=== PATIENT | female | born 1985 | race Caucasian/White ===

== ENCOUNTER 2019-05-10 18:32 | Inpatient (IN) ==
[2019-05-10] MEDS ORDERED: BUPIVACAINE 0.25% 30 ML VIAL ONE (20:40)
[2019-05-10] MEDS ORDERED: fentaNYL citrate 100 MCG/2 ML VIAL ONE (20:41)
[2019-05-10] MEDS ORDERED: fentaNYL 2MCG/ML ROPIV 1.25MG/ML 100 ML BAG EPI ONE (20:41)
[2019-05-10] MEDS ORDERED: ePHEDrine sulfate 50 MG/ML AMP ONE (20:41)
[2019-05-10] MEDS ORDERED: OXYTOCIN 30 UNITS/500 ML BAG IV PRN (20:42)
[2019-05-10] MEDS: LACTATED RINGER'S 1,000 ML IV PRN ×2 (20:52→23:00)
[2019-05-10 21:00] LABS: Hematocrit (blood only) 37.3 % (37-47); Mean Corpuscular Volume 90.1 fL (80-100); Mean Platelet Volume 10.3 fL (7.4-10.4); Platelet Count 217 K/uL (130-400); RDW Coefficient of Variation 12.9 % (11.5-14.5); RDW Standard Deviation 42.3 fL (36.4-46.3); Red Blood Count 4.14 M/uL (4.2-5.4); White Blood Count 22.02 K/uL (4.8-10.8)
[2019-05-10 21:03] LABS: Mean Corpuscular Hgb Conc 34.9 g/dL (32-36)
[2019-05-10] MEDS ORDERED: NALBUPHINE HCL INJ 10 MG/ML AMP IV PRN (21:31)
[2019-05-10] MEDS ORDERED: NALOXONE HCL 0.4 MG/1 ML VIAL/CARP IV PRN (21:31)
[2019-05-10] MEDS ORDERED: DiphenhydrAMINE HCL 50 MG/ML VIAL IV PRN (21:31)
[2019-05-10] MEDS ORDERED: NALOXONE HCL 1 MG in SODIUM CHLORIDE 0.9% 1000ML 1,000 ML IV PRN (21:31)
[2019-05-10] MEDS ORDERED: ePHEDrine sulfate 50 MG/ML AMP IV PRN (21:31)
[2019-05-10] MEDS ORDERED: fentaNYL 2MCG/ML ROPIV 1.25MG/ML 100 ML BAG EPI PRN (21:31)
[2019-05-10] MEDS ORDERED: ONDANSETRON INJ 2 MG/ML 2 ML VIAL IV PRN (21:31)
--- NOTE | 2019-05-10 23:23 | History & Physical Report ---
Date of Service May 10, 2019 Assessment & Plan (1) Post-term , 40-42 weeks of gestation: admit, iv, labs. anesth has placed epidural (2) PROM with onset of labor more than 24 hours following rupture: we were unaware of her complaints but based on her history will consider her prolonged rom. (3) Variable heart rate decelerations, antepartum: will see if amnioinfusion helps variables. if they persist, she is aware unless dilating rapidly may need to consider c/s. fhts overall reassuring with variability and spont accels but still categ 2. need to recheck cx at least at 2hr raissa. History of Present Illness Chief Complaint: more comfortable with epidural. Primary Care Provider: NO PCP 33yo at 39+wks ega presents with above cc. Patient came in earlier noting regular ctx. She then noted leaking since 3am on 05/09/19 but never called us. She was observed and noted to have nitrazine + fluid, regular ctx and cx change from 3cm to 4cm and was admitted. She wanted and received an epidural for pain management. She is comfortable now. Nursing noting on and off variable decels. pnc c/b 1. abnl masfp 2. elevated bmi 3. hereditary angioedema pnl rh pos, ri, gbs neg obh: g1 gynh: nl paps, no stds pmh: angioedema, obesity psh: tonsillectomy, paz sh: no tob/etoh/drugs fh: no praveen anom or mr Allergies Allergy/AdvReac Type Severity Reaction Status Date / Time Cephalosporins Allergy Mild Verified 02/16/19 11:05 codeine Allergy Mild Verified 02/16/19 11:05 Penicillins Allergy Mild Verified 02/16/19 11:05 Quinolones Allergy Mild Verified 02/16/19 11:05 Home Medications Home Medications Medication Instructions Recorded Confirmed Type vit-iron fum-folic ac 1 tab PO DAILY 05/05/19 05/05/19 History [ Vitamin] Patient History Surgical History History of tonsillectomy History of cholecystectomy History of excision of pilonidal cyst Social History Preferred Language: B[place]udian Communication Ability: Effective Beliefs That Will Affect Care: None marital status: Current Living Situation: Spouse Feels Safe at Home: Yes Smoking Status: Never smoker Hx Alcohol Use: No Hx Substance Use: No Review of Systems some blood show. per hpi Physical Exam Constitutional: WD/WN, vitals as above Gastrointestinal (Abdomen): soft gravid obese ewf 8# Musculoskeletal: no edema Genitourinary: Manual OB Exam: + cervical dilation 5 cm, + cervical effacement 100%, + station -2 and + amniotic fluid clear OB Exam Monitor Tracing: + external FHT monitor used (135 mod variability, variable decels, iupc and fse placed. ) and + external uterine monitor used (q2-3) Results & Data Vital Signs (Past 12 Hours) Vital Signs Temp Pulse Resp BP Pulse Ox 05/10/19 23:11 78 98 05/10/19 23:06 77 96 05/10/19 23:02 76 108/56 L 05/10/19 23:01 68 96 05/10/19 22:56 77 97 05/10/19 22:51 73 97 05/10/19 22:47 76 107/57 L 05/10/19 22:46 75 96 05/10/19 22:41 84 100 05/10/19 22:36 75 100 05/10/19 22:33 73 114/55 L 05/10/19 22:31 72 100 05/10/19 22:30 20 05/10/19 22:26 70 100 05/10/19 22:21 71 100 05/10/19 22:16 77 100 05/10/19 22:15 74 20 127/67 05/10/19 22:11 77 100 05/10/19 22:10 76 20 125/65 05/10/19 22:06 78 100 05/10/19 22:05 91 H 20 124/70 05/10/19 22:03 97 H 119/64 05/10/19 22:01 83 124/68 100 05/10/19 22:00 37.2 C 20 05/10/19 21:59 91 H 121/67 05/10/19 21:57 95 H 128/72 05/10/19 21:56 102 H 100 05/10/19 21:55 20 05/10/19 21:53 80 137/81 05/10/19 21:51 82 100 05/10/19 21:46 88 100 05/10/19 21:41 75 100 05/10/19 21:37 82 139/81 05/10/19 21:36 76 98 05/10/19 21:01 37.2 C 20 05/10/19 18:59 37.2 C 20
--- NOTE | 2019-05-10 23:44 | Obstetrical Progress Note ---
Date of Service May 10, 2019 Assessment & Plan (1) Post-term , 40-42 weeks of gestation: (2) PROM with onset of labor more than 24 hours following rupture: (3) Variable heart rate decelerations, antepartum: have attempted amnioinfusion, ivf bolus and position change. this is spont labor pattern. if variables persist and no imminent delivery will proceed with c/s. couple aware. (4) Hereditary angioedema: Subjective still comfortable Physical Exam Constitutional: WD/WN, vitals as above Genitourinary: OB Exam Monitor Tracing: + scalp electrode used (130 with moderate variability, variable decels. ), + intra-uterine pressure catheter used (ctx strength varies. amnioinfusion bolus in. ) and + category II Results & Data Vital Signs (Past 12 Hours) Vital Signs Temp Pulse Resp BP Pulse Ox 05/10/19 23:36 77 100 05/10/19 23:32 70 103/57 L 05/10/19 23:31 66 95 05/10/19 23:28 70 94 05/10/19 23:26 71 95 05/10/19 23:21 81 95 05/10/19 23:19 80 94 05/10/19 23:17 73 117/66 05/10/19 23:16 72 95 05/10/19 23:11 78 98 05/10/19 23:06 77 96 05/10/19 23:02 76 108/56 L 05/10/19 23:01 68 96 05/10/19 22:56 77 97 05/10/19 22:51 73 97 05/10/19 22:47 76 107/57 L 05/10/19 22:46 75 96 05/10/19 22:41 84 100 05/10/19 22:36 75 100 05/10/19 22:33 73 114/55 L 05/10/19 22:31 72 100 05/10/19 22:30 20 05/10/19 22:26 70 100 05/10/19 22:21 71 100 05/10/19 22:16 77 100 05/10/19 22:15 74 20 127/67 05/10/19 22:11 77 100 05/10/19 22:10 76 20 125/65 05/10/19 22:06 78 100 05/10/19 22:05 91 H 20 124/70 05/10/19 22:03 97 H 119/64 05/10/19 22:01 83 124/68 100 05/10/19 22:00 37.2 C 20 05/10/19 21:59 91 H 121/67 05/10/19 21:57 95 H 128/72 05/10/19 21:56 102 H 100 05/10/19 21:55 20 05/10/19 21:53 80 137/81 05/10/19 21:51 82 100 05/10/19 21:46 88 100 05/10/19 21:41 75 100 05/10/19 21:37 82 139/81 05/10/19 21:36 76 98 05/10/19 21:01 37.2 C 20 05/10/19 18:59 37.2 C 20
[2019-05-11] MEDS ORDERED: CITRIC ACID/SODIUM CITRATE 15 ML UDC ONE (01:10)
[2019-05-11] MEDS ORDERED: AZITHROMYCIN 500 MG in DEXTROSE 5% 250 ML IV ONE (01:18)
[2019-05-11] MEDS ORDERED: LACTATED RINGER'S 1,000 ML IV SCH ×3 (01:30→02:30)
[2019-05-11] MEDS ORDERED: CLINDAMYCIN 900 MG in DEXTROSE 5% 50 ML IV ONE (01:30)
[2019-05-11] MEDS ORDERED: GENTAMICIN SULFATE 120 MG in DEXTROSE 5% 100 ML IV ONE (01:30)
[2019-05-11] MEDS ORDERED: CITRIC ACID/SODIUM CITRATE 15 ML UDC PO ONE (01:30)
[2019-05-11] MEDS ORDERED: PHENYLEPHRINE HCL 10 MG/ML VIAL ONE (01:42)
[2019-05-11] MEDS ORDERED: LIDOCAINE/EPINEPHRINE 2% 1:200,000 20 ML SDV ONE (01:42)
[2019-05-11] MEDS ORDERED: ONDANSETRON INJ 2 MG/ML 2 ML VIAL ONE (01:42)
[2019-05-11] MEDS ORDERED: MoRPHine SULFATE PF 1 MG/ML 10 ML AMP/VIAL ONE (01:43)
[2019-05-11] MEDS ORDERED: OXYTOCIN 10 UNITS/ML VIAL ONE ×2 (01:43→02:14)
[2019-05-11] MEDS ORDERED: ONDANSETRON INJ 2 MG/ML 2 ML VIAL IV PRN ×3 (01:57→20:04)
[2019-05-11] MEDS ORDERED: TERBUTALINE SULFATE 1 MG/ML VIAL ONE (02:00)
[2019-05-11] MEDS ORDERED: PROMETHAZINE HCL 25 MG in SODIUM CHLORIDE 0.9% 50 ML IV PRN ×2 (02:04→20:04)
[2019-05-11] MEDS ORDERED: MoRPHine SULFATE PF 1 MG/ML 10 ML AMP/VIAL EPI ONE (02:04)
[2019-05-11] MEDS ORDERED: DiphenhydrAMINE HCL 50 MG/ML VIAL IV PRN ×2 (02:04→20:04)
[2019-05-11] MEDS ORDERED: NALOXONE HCL 0.4 MG/1 ML VIAL/CARP IV PRN (02:04)
[2019-05-11] MEDS ORDERED: MEPERIDINE HCL 25 MG/ML CARP IV PRN (02:04)
[2019-05-11] MEDS ORDERED: NALOXONE HCL 1 MG in SODIUM CHLORIDE 0.9% 1000ML 1,000 ML IV PRN (02:04)
[2019-05-11] MEDS ORDERED: ePHEDrine sulfate 50 MG/ML AMP IV PRN (02:04)
[2019-05-11] MEDS ORDERED: NALBUPHINE HCL INJ 10 MG/ML AMP IV PRN (02:04)
[2019-05-11] MEDS ORDERED: NALOXONE HCL 0.08 MG in SYRINGE 1.8 ML IV PRN (02:04)
[2019-05-11] MEDS ORDERED: LACTATED RINGER'S 500 ML IV PRN (02:04)
[2019-05-11] MEDS ORDERED: NO NARCOTICS OR SEDATIVES SCH (02:15)
[2019-05-11] MEDS ORDERED: DC INTRASPINAL MORPHINE SCH (02:15)
[2019-05-11] MEDS ORDERED: SODIUM CHLORIDE 0.9% 1000ML 1,000 ML IV SCH (02:15)
[2019-05-11 02:16] LABS: Base Excess Cord Arterial Bld -6.5 mEq/L (-9-1.8); CO2 Cord Arterial Blood 52 mmHg (39.1-73.5); HCO3 Cord Arterial Blood 22 mmol/L (19.7-28.5); Oxygen Sat Cord Arterial Blood < 60.0 % (<60); pH Cord Arterial Blood 7.24 (7.1-7.38)
[2019-05-11 02:17] LABS: Base Excess Cord Venous Blood -8.2 mEq/L (-7.7-1.9); Cord Venous Blood HCO3 19 mmol/L (18.4-26.8); Cord Venous Blood PCO2 45 mmHg (30.4-57.2); Cord Venous Blood PO2 18 mmHg (14.1-43.3); Cord Venous Blood pH 7.24 (7.20-7.44); O2 Saturation Cord Venous Bld < 60.0 % (<68)
--- NOTE | 2019-05-11 02:20 | Post Operative Brief Note ---
Immediate Post Op Note v1 Date of Surgery May 11, 2019 Pre & Post Diagnosis Operation Date: 05/11/19 01:15 <No data on this case meets the specified criteria> 1. 40+wk iup 2. PROM 3. intolerance to labor Procedure Operation Date: 05/11/19 01:15 <No data on this case meets the specified criteria> Primary Low Transverse Section Surgeon Calista Siddiqui MD, FACOG Billing Representative RN Estimated Blood Loss 700 Findings Consistent with Post-Op Diagnosis (viable female infant.short cord. normal uterus, tubes and ovaries bilaterally. ) Fluids 1400 Specimens placenta to pathology Drains Lopez Catheter Anesthesia Type Labor Epidural Complications none Disposition Accompanied Patient To Recovery: No Disposition: L&D
[2019-05-11] MEDS ORDERED: DIPHTHERIA/TETANUS/PERTUSSIS 0.5 ML SYR/VIAL IM ONE (02:22)
[2019-05-11] MEDS ORDERED: SUPERCREAM 0.870% 15 GM JAR EXT PRN (02:22)
[2019-05-11] MEDS ORDERED: BENZOCAINE 20% AER SPR 82.5 GM CAN EXT PRN (02:22)
[2019-05-11] MEDS ORDERED: HYDROCORTISONE ACETATE 25 MG SUPP PR PRN (02:22)
--- NOTE | 2019-05-11 03:15 | Operative Report ---
DATE OF OPERATION: 05/10/2019 PREOPERATIVE DIAGNOSES: 1. A 40+ week intrauterine . 2. Premature rupture of membranes. 3. Spontaneous onset of labor. 4. intolerance of labor. POSTOPERATIVE DIAGNOSES: 1. A 40+ week intrauterine . 2. Premature rupture of membranes. 3. Spontaneous onset of labor. 4. intolerance of labor. PROCEDURE: Primary low transverse section. SURGEON: Calista Siddiqui MD. PACKAGING LINE ATTENDANT: RN. INTRAVENOUS FLUIDS: 1400 mL ESTIMATED BLOOD LOSS: 700 mL ANESTHESIA: Epidural with Duramorph. FINDINGS: Viable female , Apgars 8 and 9, weight 6 pounds. Normal uterus, tubes and ovaries bilaterally. Evidence of short cord. INDICATIONS: A 33-year-old 1, para 0 who presented with regular contractions and early labor. Of note, on her arrival, she reported leaking fluid from the day prior and was ruptured on her arrival and therefore was considered prolonged rupture. She proceeded into spontaneous labor; however, the fetus was intolerant with evidence of variable decels that were recurrent. There was no likelihood of imminent delivery. A IUPC had been placed and an amnioinfusion was attempted; however, this did not correct the problem and ultimately it was recommended that she proceed with section as she was remote from delivery with deep variable decels of the fetus. DESCRIPTION OF PROCEDURE: The patient was taken to the operating room and identified. She was laid in the supine position with a leftward tilt and her epidural was bolused. She was prepped and draped in the usual sterile fashion. A Lopez catheter had been placed under sterile conditions. The knife was then used to create a Pfannenstiel skin incision that was carried down to the underlying layer of fascia. The fascia was nicked in the midline and the opening was extended laterally using Izaguirre scissors. Gonzalo clamps were placed on the superior and inferior aspects of the fascial incision, tenting it upwards and the underlying rectus muscles were dissected off the overlying fascia both sharply and bluntly using Izaguirre scissors. The rectus muscles were bluntly in the midline. The peritoneal cavity was bluntly entered into. This opening was stretched. Bladder blade was placed. The vesicouterine peritoneum was grasped with a Radha clamp and elevated and using the Metzenbaum scissors, the bladder flap was created sharply and then digitally. The bladder blade was replaced. Knife was used to create a hysterotomy that was then stretched. The injection operator's hand was placed through the hysterotomy and the bladder blade was removed. There was evidence of thin meconium. The head was then elevated, flexed and with fundal pressure delivered. The shoulders and body were rapidly delivered thereafter and the mouth and nose were bulb suctioned. The cord was doubly clamped and cut and the was handed off to the awaiting pediatricians. Cord blood and cord gases were obtained. The placenta was manually expressed. The uterus was exteriorized and cleared of all clots and debris. The hysterotomy was closed in a running interlocking fashion using 0 Vicryl followed by a second imbricating layer of 0 Vicryl. There was bleeding at the left hysterotomy site that was stitched with 2 [id number] sutures of 2-0 Vicryl for excellent hemostasis. The gutters were cleared of all clots and debris. The uterus was returned to the abdomen. The pelvis was irrigated and the hysterotomy was reinspected. It was notably hemostatic. The fascia was closed in a running fashion using 0 Vicryl. The subcutaneous fat was copiously irrigated and the fat was reapproximated using 2-0 chromic. The skin was then closed in subcuticular fashion using 4-0 Vicryl. All sponge, lap and needle counts were correct x2. The patient was returned to the recovery room in stable condition. I attest to the content of the Intraoperative Record and any orders documented therein. Any exceptions are noted below. HERON
--- NOTE | 2019-05-11 03:42 | Anesthesiology Progress Note ---
Date of Service May 11, 2019 Anesthesia Post Procedure Vital Signs Vital Signs: Temp Pulse Resp BP Pulse Ox 05/11/19 03:40 106 H 115/64 100 05/11/19 03:35 103 H 100 05/11/19 03:30 108 H 20 105/59 L 100 05/11/19 03:25 109 H 99 05/11/19 03:20 107 H 20 104/56 L 98 05/11/19 03:15 111 H 97 05/11/19 03:10 103 H 20 132/61 96 05/11/19 03:05 112 H 97 05/11/19 03:00 109 H 20 96 05/11/19 02:58 108 H 129/57 L 05/11/19 02:56 113 H 94 05/11/19 02:55 112 H 95 05/11/19 02:50 104 H 20 95 05/11/19 02:49 105 H 94 05/11/19 02:48 102 H 134/61 05/11/19 02:45 106 H 94 05/11/19 02:42 107 H 94 05/11/19 02:40 110 H 20 96 05/11/19 02:38 108 H 137/59 L 05/11/19 02:36 107 H 94 05/11/19 02:34 105 H 95 05/11/19 02:30 36.8 C 20 05/11/19 02:29 103 H 92 05/11/19 02:27 106 H 137/63 05/11/19 01:21 110 H 99 05/11/19 01:16 110 H 98 05/11/19 01:11 103 H 100 05/11/19 01:06 105 H 100 05/11/19 01:02 100 H 127/74 05/11/19 01:01 106 H 100 05/11/19 01:00 20 05/11/19 00:56 82 100 05/11/19 00:51 68 100 05/11/19 00:49 76 116/73 05/11/19 00:46 72 100 05/11/19 00:41 70 100 05/11/19 00:36 67 99 05/11/19 00:32 73 127/72 05/11/19 00:31 71 100 05/11/19 00:30 37.2 C 20 05/11/19 00:26 69 100 05/11/19 00:21 64 100 05/11/19 00:17 66 129/79 05/11/19 00:16 64 100 05/11/19 00:11 68 100 05/11/19 00:06 68 99 05/11/19 00:02 73 118/75 05/11/19 00:01 70 99 05/11/19 00:00 20 05/10/19 23:56 71 99 05/10/19 23:51 63 100 05/10/19 23:48 69 115/67 05/10/19 23:46 69 100 05/10/19 23:41 71 100 05/10/19 23:36 37.2 C 77 100 05/10/19 23:32 70 103/57 L 05/10/19 23:31 66 95 05/10/19 23:28 70 94 05/10/19 23:26 71 95 05/10/19 23:21 81 95 05/10/19 23:19 80 94 05/10/19 23:17 73 117/66 05/10/19 23:16 72 95 05/10/19 23:11 78 98 05/10/19 23:06 77 96 05/10/19 23:02 76 108/56 L 05/10/19 23:01 68 96 05/10/19 22:56 77 97 05/10/19 22:51 73 97 05/10/19 22:47 76 107/57 L 05/10/19 22:46 75 96 05/10/19 22:41 84 100 05/10/19 22:36 75 100 05/10/19 22:33 73 114/55 L 05/10/19 22:31 72 100 05/10/19 22:30 20 05/10/19 22:26 70 100 05/10/19 22:21 71 100 05/10/19 22:16 77 100 05/10/19 22:15 74 20 127/67 05/10/19 22:11 77 100 05/10/19 22:10 76 20 125/65 05/10/19 22:06 78 100 05/10/19 22:05 91 H 20 124/70 05/10/19 22:03 97 H 119/64 05/10/19 22:01 83 124/68 100 05/10/19 22:00 37.2 C 20 05/10/19 21:59 91 H 121/67 05/10/19 21:57 95 H 128/72 05/10/19 21:56 102 H 100 05/10/19 21:55 20 05/10/19 21:53 80 137/81 05/10/19 21:51 82 100 05/10/19 21:46 88 100 05/10/19 21:41 75 100 05/10/19 21:37 82 139/81 05/10/19 21:36 76 98 05/10/19 21:01 37.2 C 20 05/10/19 18:59 37.2 C 20 Pain Intensity Bilateral Abdomen: Pain Intensity: 2 Transfer of Care Handoff Completed per policy Notes Mental Status: alert / awake / arousable Patient Amnestic to Procedure: Yes Nausea / Vomiting: adequately controlled Pain: adequately controlled Airway Patency, RR, SpO2: stable & adequate BP & HR: stable & adequate Hydration State: stable & adequate Neuraxial Anesthesia: was administered and sensory block is resolving Anesthetic Complications: no major complications apparent and Pt Satisfied with anesthetic care
[2019-05-11] MEDS: KETOROLAC 30 MG/ML VIAL IV PRN ×3 (04:21→16:22)
[2019-05-11] MEDS: OXYTOCIN 20 UNITS in LACTATED RINGER'S 1,000 ML IV SCH ×2 (04:39→12:03)
[2019-05-11] MEDS: DOCUSATE SODIUM 100 MG CAP PO SCH ×2 (10:04→20:56)
[2019-05-11] MEDS: SIMETHICONE 80 MG CHEW PO SCH ×4 (10:04→20:56)
[2019-05-11] MEDS ORDERED: KETOROLAC 30 MG/ML VIAL IV PRN (20:04)
[2019-05-11] MEDS ORDERED: ZOLPIDEM TARTRATE 5 MG TAB PO PRN (20:04)
[2019-05-11] MEDS: OXYCODONE/ACETAMINOPHEN 5mg/325mg TAB PO PRN (20:55)
[2019-05-12] MEDS: OXYCODONE/ACETAMINOPHEN 5mg/325mg TAB PO PRN ×5 (02:12→20:33)
[2019-05-12] MEDS: IBUPROFEN 600 MG TAB PO PRN ×5 (02:12→20:32)
--- NOTE | 2019-05-12 05:12 | Obstetrical Progress Note ---
Date of Service <Shravan Stokes MD - Last Filed: 05/12/19 07:19> May 12, 2019 Assessment & Plan <Shravan Stokes MD - Last Filed: 05/12/19 07:19> (1) S/P primary low transverse : [33 y/o s/p primary low transverse C/S @ 40+6 with PROM and intolerance Hx of hereditary Angioedema] -POD#1 - GBS negative, Blood Type B+ - Feels well today. Eating well, voiding well, ambulating well. - Pain well controlled. - Routine postoperative care - After discharge will have [address] Siddiqui. Present on Admission?: No Day #:: 1 Subjective <Shravan Stokes MD - Last Filed: 05/12/19 07:19> Ambulation: ambulating normally Voiding: no voiding problems Passing Gas:: Yes Diet Tolerance:: clear liquids Lochia:: Small Feeding Type:: breast feeding Current Pain Level(1-10): 3 Physical Exam <Shravan Stokes MD - Last Filed: 05/12/19 07:19> OB PE General: Alert, oriented. No acute distress. Cardiac: Regular rate and rhythm, no murmurs/rubs/gallops. Respiratory: Clear to auscultation anterior and posteriorly, no wheezes/rales/rhonchi. No increased work of breathing. Symmetrical chest rise. No respiratory distress. Abdomen: Soft, nontender, nondistended. Bowel sounds present. Uterus: Uterine fundus firm, palpable at the umbilicus. Lower Extremities: No lower extremity edema or swelling. No deep calf pain. Lory's negative bilaterally. OB ROS Denies fever, chills, sweats Denies shortness of breath, difficulty breathing, chest pain, palpitations, chest pressure. Denies breast pain. Denies dysuria. Denies headache. Results & Data <Shravan Stokes MD - Last Filed: 05/12/19 07:19> Vital Signs (Past 12 Hours) Vital Signs Temp Pulse Resp BP Pulse Ox 05/12/19 04:05 36.9 C 77 18 95/62 L 05/12/19 00:35 37 C 81 18 107/71 05/12/19 00:00 37.1 C 95 H 17 112/72 96 05/11/19 20:40 17 97 05/11/19 19:40 37.1 C 80 18 96/65 L 98 05/11/19 18:40 16 96 05/11/19 17:40 16 96 <Mai Burgess MD - Last Filed: 05/12/19 07:03> Co-Signing Physician Notes I have reviewed the resident's note and examined the patient myself, and agree with the note above.
[2019-05-12 06:49] LABS: Basophils # (auto) 0.03 K/uL (0-0.2); Basophils % (auto) 0.2 %; Eosinophils # (auto) 0.11 K/uL (0-0.5); Eosinophils % (auto) 0.7 %; Hematocrit (blood only) 32.3 % (37-47); Hemoglobin 11.1 g/dL (12.0-16.0); Immature Granulocytes # (auto) 0.06 K/uL (0.00-0.02); Immature Granulocytes % (auto) 0.4 %; Lymphocytes # (auto) 1.72 K/uL (1.2-3.4); Lymphocytes % (auto) 10.9 %; Mean Corpuscular Hgb Conc 34.4 g/dL (32-36); Mean Corpuscular Volume 91.8 fL (80-100); Mean Platelet Volume 10.1 fL (7.4-10.4); Monocytes # (auto) 1.16 K/uL (0.11-0.59); Monocytes % (auto) 7.4 %; Neutrophils # (auto) 12.68 K/uL (1.4-6.5); Neutrophils % (auto) 80.4 %; Platelet Count 179 K/uL (130-400); RDW Coefficient of Variation 13.5 % (11.5-14.5); RDW Standard Deviation 44.7 fL (36.4-46.3); Red Blood Count 3.52 M/uL (4.2-5.4); White Blood Count 15.76 K/uL (4.8-10.8)
--- NOTE | 2019-05-12 08:23 | Anesthesiology Progress Note ---
Date of Service May 12, 2019 Anesthesia Post Procedure Vital Signs Vital Signs: Temp Pulse Pulse Resp BP BP Pulse Ox 05/12/19 04:05 36.9 C 77 18 95/62 L 05/12/19 00:35 37 C 81 18 107/71 05/12/19 00:00 37.1 C 95 H 17 112/72 96 05/11/19 20:40 17 97 05/11/19 19:40 37.1 C 80 18 96/65 L 98 05/11/19 18:40 16 96 05/11/19 17:40 16 96 05/11/19 16:40 20 96 05/11/19 15:40 37.3 C 102 H 102 H 18 102/66 102/66 96 05/11/19 14:00 20 97 05/11/19 13:00 20 99 05/11/19 12:03 20 98 05/11/19 11:15 37 C 95 H 20 90/58 L 95 05/11/19 11:00 20 98 05/11/19 10:00 18 96 05/11/19 09:00 20 97 Pulse Ox 05/12/19 04:05 05/12/19 00:35 05/12/19 00:00 05/11/19 20:40 05/11/19 19:40 05/11/19 18:40 05/11/19 17:40 05/11/19 16:40 05/11/19 15:40 96 05/11/19 14:00 05/11/19 13:00 05/11/19 12:03 05/11/19 11:15 95 05/11/19 11:00 05/11/19 10:00 05/11/19 09:00 Pain Intensity Bilateral Abdomen: Pain Intensity: 3 Transfer of Care Handoff Completed per policy Notes Mental Status: alert / awake / arousable Patient Amnestic to Procedure: Yes Nausea / Vomiting: adequately controlled Pain: adequately controlled Airway Patency, RR, SpO2: stable & adequate BP & HR: stable & adequate Hydration State: stable & adequate Neuraxial Anesthesia: was administered and sensory block resolved Anesthetic Complications: no major complications apparent and Pt Satisfied with anesthetic care
[2019-05-12] MEDS: SIMETHICONE 80 MG CHEW PO SCH ×3 (09:18→20:32)
[2019-05-12] MEDS: DOCUSATE SODIUM 100 MG CAP PO SCH ×2 (09:18→20:32)
[2019-05-13] MEDS: IBUPROFEN 600 MG TAB PO PRN ×5 (00:14→20:16)
[2019-05-13] MEDS: OXYCODONE/ACETAMINOPHEN 5mg/325mg TAB PO PRN ×5 (00:14→20:16)
--- NOTE | 2019-05-13 05:26 | Obstetrical Progress Note ---
Date of Service <Shravan Stokes MD - Last Filed: 05/13/19 08:08> May 13, 2019 Assessment & Plan <Shravan Stokes MD - Last Filed: 05/13/19 08:08> (1) S/P primary low transverse : [33 y/o s/p primary low transverse C/S @ 40+6 with PROM and intolerance Hx. of hereditary Angioedema] POD#2 - GBS negative, Blood Type B+ - Feels well today. Eating well, voiding well, ambulating well. - Pain well controlled. - Routine postoperative care - After discharge will have [address] Siddiqui. Dyspnea on deep inspiration - potentially post operative atelectasis (encourage ambulation) - no pleuritic pain, normocardic, Wells criteria 1.5 (low clinical probability) - Hx. of Hereditary Angioedema Diagnosed 02/21 - Firazyr prescription for acute attacks - no concerning signs or symptoms of angioedema PLAN - CXR - Medicine consult for further evaluation Subjective <Shravan Stokes MD - Last Filed: 05/13/19 08:08> Ambulation: ambulating normally Voiding: no voiding problems Passing Gas:: Yes Diet Tolerance:: regular diet Feeding Type:: breast feeding Current Pain Level(1-10): 3 Physical Exam <Shravan Stokes MD - Last Filed: 05/13/19 08:08> OB PE General: Alert, oriented. No acute distress. Cardiac: Regular rate and rhythm, no murmurs/rubs/gallops. Respiratory: Clear to auscultation anterior and posteriorly, no wheezes/rales/rhonchi. No increased work of breathing. Symmetrical chest rise. No respiratory distress. Abdomen: Soft, nontender, nondistended. Bowel sounds present. Incision c/d/i Uterus: Uterine fundus firm, palpable 1 cm below umbilicus. Lower Extremities: No lower extremity edema or swelling. No deep calf pain. Lory's negative bilaterally. OB ROS Admits Shortness of breath without pain Denies fever, chills, sweats Denies chest pain, palpitations, chest pressure. Denies breast pain. Denies dysuria. Denies headache. Results & Data <Shravan Stokes MD - Last Filed: 05/13/19 08:08> Vital Signs (Past 12 Hours) Vital Signs Temp Pulse Pulse Resp BP BP Pulse Ox 05/12/19 23:05 37 C 81 18 115/68 05/12/19 20:30 37 C 89 18 116/71 97 <Marylou Wright MD, FACOG - Last Filed: 05/13/19 08:09> Co-Signing Physician Notes Resident Physician Supervision Note: I was present with [Name of resident] during the history and exam. I discussed the case with the resident and agree with the findings and plan as documented in the note. Any exceptions or clarifications are listed here: [None] Documented By: Marylou Wright MD, FACOG
[2019-05-13] MEDS: DOCUSATE SODIUM 100 MG CAP PO SCH ×2 (07:38→20:16)
[2019-05-13] MEDS: SIMETHICONE 80 MG CHEW PO SCH ×4 (07:38→20:16)
--- NOTE | 2019-05-13 08:51 | Hospitalist Consultation ---
Date of Consultation May 13, 2019 Assessment & Plan (1) Shortness of breath: - Onset x 1 day, improving - Possible that this is secondary to acute blood loss s/p as Hgb has dropped from 13 to 10 g. Also possible that this is a form of atelectasis with diminished breath sounds at bases bilaterally on exam. Pt notes improvement in SOB since yesterday. Pt encouraged to use incentive spirometer - discussed with nursing as well. - Consider dx of pulmonary embolism with hypercoagulable state vs. amniotic fluid embolism - however pt with stable VS, minimal shortness of breath at this time, improved from yesterday, therefore this is unlikely. - CXR 2 view ordered, await results. - Consider CTA and venous dopplers if worsening sx - Recheck cbc with am labs - Encourage ambulation (2) Hereditary angioedema: - Last flare was at 3 mo , prior to that was 8 years ago - Has not required medication for flares but has a Rx for Firazyr as outpatient - never has needed to use - Unlike the pts current presentation - she has gotten minimal edema in the hands and face on prior episodes. - Monitor the R wrist for further edema (3) S/P primary low transverse : - Per certified court/medical interpreter - Continue analgesia with oxycodone/acetaminophen prn (4) DVT prophylaxis: - encourage ambulation, no chemical form of dvt ppx ordered. Thank you for involving medicine in the care of Mrs. Meyer, please do not hesitate to call with questions or concerns. We will follow along. History of Present Illness Reason for Consultation: Shortness of breath Requesting Physician: Dr. Wright Attending Physician: Calista Siddiqui MD, FACOG History of Present Illness This is a 33 yo F with PMHx of hereditary angioedema, hx of tonsillectomy, cholecystectomy, who is s/p 2 days ago and noticed worsening shortness of breath yesterday, on 05/12/19. It seems to be at it's worst when she goes from a sitting to standing position, and then is fine while ambulating. Her breathing is slightly labored while talking, but does not have difficulty holding a conversation, and does not appear winded. Pt notes breathing is overall much improved today. She denies cough, rhinorrhea, sore throat, but complains of slightly dry throat. Denies lightheadedness, dizziness, chest pain or palpitations. In regards to hereditary angioedema, she had her most recent flare while she was about 3 month , but that this consisted on swelling in her hands and face. Prior to that her last flare was 8 years ago and involved the face and hands, she denies hx of respiratory involvement. Home meds include a Rx for Firazyr, but has never required using this. Currently pt notes her right wrist is slightly swollen, but that this minimal compared to prior flares, and does not believe this is actually an angioedema flare beginning. Pt is tolerating a diet well. Urinating and passing gas, but no BM yet. She reports the baby is doing well between nursing, pumping and using formula supplementation because of low glucose. Her is present at bedside during exam. Allergies Allergy/AdvReac Type Severity Reaction Status Date / Time Cephalosporins Allergy Mild Verified 02/16/19 11:05 codeine Allergy Mild Verified 02/16/19 11:05 Penicillins Allergy Mild Verified 02/16/19 11:05 Quinolones Allergy Mild Verified 02/16/19 11:05 Home Medications Home Medications Medication Instructions Recorded Confirmed Type vit-iron fum-folic ac 1 tab PO DAILY 05/05/19 05/11/19 History [ Vitamin] Patient History Medical History 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, only involves hands and feet not airway, resolved on its own Surgical History History of tonsillectomy History of cholecystectomy History of excision of pilonidal cyst Social History Preferred Language: Senegalese Communication Ability: Effective Beliefs That Will Affect Care: None marital status: Current Living Situation: Spouse Feels Safe at Home: Yes Smoking Status: Never smoker Hx Alcohol Use: No Hx Substance Use: No Review of Systems Review of Systems: Constitutional: No fever, sweats or chills Eyes: No diplopia, no worsening or blurred vision ENT: normal hearing, no trouble swallowing Respiratory: As per HPI. No cough, sputum, dyspnea at rest or on exertion Cardiovascular: No chest pain, tightness or palpitations Abdomen: + Dull abd pain secondary to , controlling with medication. No nausea, vomiting, diarrhea. Last BM 2d ago. Musculoskeletal: No joint pain, calf pain. R wrist with minimal swelling. Neurologic: No weakness, numbness/tingling, or balance problems Psychiatric: No anxiety or depression Skin: No rash or itch Physical Exam Physical Exam: General: awake, alert, no apparent distress Head: Normocephalic, atraumatic ENT: PERRL, EOMI, no pharyngeal exudate, mucous membranes moist Chest: Clear to auscultation, on room air, +diminished breath sounds at bases bilaterally, no wheezes, rales or rhonchi. No work of breathing or use of accessory muscles. Cardiac: Regular rate and rhythm, no murmur, no JVD, normal peripheral pulses, good capillary refill Abdominal: NABS x 4 quadrants, soft, nondistended, + minimally tender palpation, no rebound, guarding or tenderness Extremities: Normal inspection, no peripheral edema or erythema, calfs nontender to palpation. + Right wrist with minimal edema. Psych: Normal mood and affect Neuro: AAO x 3, strength intact bilaterally and related 5/5, no motor deficits, speech is clear, no peripheral sensory deficits Results & Data Vital Signs (Past 12 Hours) Vital Signs Temp Pulse Resp BP 05/12/19 23:05 37 C 81 18 115/68 PG Care Time/CCT Total # of Minutes Spent Total Time Spent with Patient: Total time spent is greater than 50% in coordinat ion of care (as documented) at patient's floor/unit and/or counseling patient:
--- NOTE | 2019-05-13 09:46 | XRay Report ---
TWO VIEW CHEST CLINICAL HISTORY: Dyspnea. Recent delivery. FINDINGS: PA and lateral chest radiographs are obtained. No prior studies are available for compariso n at the time of dictation. The cardiomediastinal silhouette is unremarkable. There are low lung vo lumes. Trace pleural effusions are identified with bibasilar atelectasis. There is no pneumothorax. T he bony thorax appears intact. Cholecystectomy clips are noted in the right upper quadrant. IMPRESSION: 1. Low lung volumes. 2. Trace pleural effusions with bibasilar atelectasis. Electronically signed by: John Kendall M.D. 05/13/2019 9:45 AM
[2019-05-14] MEDS: IBUPROFEN 600 MG TAB PO PRN ×2 (06:27→11:53)
[2019-05-14] MEDS: OXYCODONE/ACETAMINOPHEN 5mg/325mg TAB PO PRN ×2 (06:27→11:54)
[2019-05-14 07:00] LABS: Hemoglobin 9.8 g/dL (12.0-16.0); Mean Corpuscular Hgb Conc 33.8 g/dL (32-36); Mean Corpuscular Volume 93.9 fL (80-100); Mean Platelet Volume 9.5 fL (7.4-10.4); Platelet Count 212 K/uL (130-400); RDW Coefficient of Variation 13.1 % (11.5-14.5); RDW Standard Deviation 45.5 fL (36.4-46.3); Red Blood Count 3.09 M/uL (4.2-5.4); White Blood Count 8.39 K/uL (4.8-10.8)
--- NOTE | 2019-05-14 08:10 | Obstetrical Progress Note ---
Date of Service May 14, 2019 Assessment & Plan (1) S/P primary low transverse : POD#3 doing well. Discharge to home. Reviewed instructions. Rx percocet #20 tabs. [place] checked. RTO 6w . Subjective Ambulation: ambulating normally Voiding: no voiding problems Diet Tolerance:: regular diet Lochia:: Moderate Feeling well - feels like respiratory complaints have resolved. Would like to go home. Review of Systems All systems reviewed & are unremarkable except as noted in HPI & below Physical Exam Constitutional WD/WN, vitals as above no acute distress Respiratory normal respiratory effort Cardiovascular Rate/Rhythm: regular rate and regular rhythm Gastrointestinal (Abdomen) Inspection/Auscultation: abdomen normal to inspection; abdomen not distended Percussion/Palpation: abdomen soft Genitourinary OB Exam Abdomen: + fundal height Fundus: + firm; not tender Incision healing well. Results & Data Vital Signs (Past 12 Hours) Vital Signs Temp Pulse Resp BP 05/13/19 23:20 36.7 C 75 18 116/71
[2019-05-14] MEDS: DOCUSATE SODIUM 100 MG CAP PO SCH (08:14)
[2019-05-14] MEDS: SIMETHICONE 80 MG CHEW PO SCH (08:14)
--- NOTE | 2019-05-16 10:53 | Discharge Summary ---
Date of Service Day of admission: May 10, 2019 Day of discharge: May 14, 2019 Admission HPI Per Admitting Provider ADMISSION DIAGNOSES: 1. A 40+ week intrauterine . 2. Premature rupture of membranes. 3. Spontaneous onset of labor. 4. intolerance of labor. DISCHARGE DIAGNOSES: same Discharge Data Consultations 05/10/19 20:42 Consult Anesthesiology Stat 05/13/19 08:04 Consult Hospitalist Routine Procedures Performed Operation Date: 05/11/19 01:15 Actual Procedures p Primary Low Transverse Section Hospital Course (1) Post-term , 40-42 weeks of gestation: (2) PROM with onset of labor more than 24 hours following rupture: (3) Variable heart rate decelerations, antepartum: (4) intolerance to labor, delivered, current hospitalization: Patient was admitted in early labor and confirmation of PROM. She was progressing in spontaneous labor by repetitive variable decelerations remote from delivery noted. Multiple attempts to resolve were not successful, including fluid bolus, position change and amnioinfusion and counseled about recommendation for section. Above stated procedure performed without incident. Post operative hemoglobin 9.8 mg/dL. Patient did have episode of shortness of breath and was evaluated by hospitalist service however ultimately it spontaneously resolved. She was sent home on postoperative day #3 with discharge instructions, prescription for pain medications and recommendation for followup in 6 weeks .
== END 2019-05-14 14:00 | disposition home or self-care (01) | DRG 787 ==
LOC: OPB 18:32 → 4S1 18:33 → 4S2 05-11 05:05

== ENCOUNTER 2025-06-05 13:46 | Observation (INO) ==
[2025-06-05] MEDS: OPTIRAY 320 125ml IV ONE (13:59)
--- NOTE | 2025-06-05 14:13 | CT Scan Report ---
CT SCAN OF THE BRAIN WITHOUT IV CONTRAST CLINICAL HISTORY: Neuro deficit. Acute stroke suspected. COMPARISON STUDY: None. TECHNIQUE: Unenhanced axial CT scan of the brain was performed from the vertex to the skull base. A dose lowering technique was utilized adhering to the principles of ALARA. FINDINGS: Brain parenchyma: No acute intracranial hemorrhage, midline shift or mass effect is present. Nuñ[place]-wh[place] te matter differentiation is preserved. There are no extra-axial fluid collections. There are no find ings to suggest acute dural sinus thrombosis or acute territorial infarct. Ventricles, sulci, cisterns: There is no hydrocephalus. The basal cisterns are patent. Calvarium: Unremarkable. Sinuses and mastoids: The visualized paranasal sinuses are clear. The mastoid air cells are well pneu matized. Orbits: The bony orbits are grossly intact. IMPRESSION: No acute intracranial findings. ACT 112: Negative or not required by law. Electronically signed by: Lito Elliott M.D. 06/05/2025 2:12 PM
--- NOTE | 2025-06-05 14:20 | Emergency Department Note ---
Impression & Plan Facial numbness, Brain fog, Multiple sclerosis ED Provider Note NAME: DARNELL ANNE AGE: 39 SEX: F : 1985 ARRIVES VIA: Walk-In INFORMANT: Patient ED PROVIDER(S): Elie Delgado MD CHIEF COMPLAINT: Facial numbness, confusion/brain fog PLAN: Disposition: Admit MEDICAL DECISION MAKING: The patient is a pleasant 39 woman with a past medical history of multiple sclerosis on Ocrevus who presents emerged department via walk-in for evaluation of symptoms of facial numbness bilaterally and feeling "off" where she feels difficulty processing/confusion. Patient reports her symptoms began around 8 AM this morning. 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 She went her first door on [facility] and started to feel symptoms but thought she could continue with her agenda and drove to her store in [place]. She told staff there that she did not feel well but did not specify to them exactly what. She feels as if she modeled through her tasks and drove home. She attempted call her MS specialist who is in [place] but has yet to hear back. Her encouraged her to come to the hospital. She drove to our facility from [place]. In retrospect she admits she should not have done that. Stroke alert was activated from triage though the patient is not a TNK candidate given the onset of her symptoms was at 8 AM. On evaluation the patient no acute distress, afebrile blood pressure 150/102 , HR 100s and otherwise stable vital signs. She appears clinically dry. She exhibits no objective focal neurologic deficits. EKG demonstrates sinus tachycardia, 118 bpm, no ectopy, ST abnormality in V3 which may reflect artifact versus possible Brugada though less likely, no overt ST elevation. QTc 431, QRS 84. Repeat EKG with resolution of ST abnormality. WBC, H/H and platelets within normal limits. Chemistry without metabolic acidosis. Potassium 3.4 and magnesium 1.9 with oral and IV repletion provided, respectively. LFTs unremarkable. High sensitivity troponin 2.3, within normal limits. hCG negative. CT of the head and CTA of the head and neck were performed and were negative for ICH, ischemia or severe narrowing or occlusion of large vessels. Upon reevaluation the patient denied any significant change in her symptoms though heart rate was improved. Given persistence of her symptoms patient does agree plan for admission for further management. Case was discussed with CLAUS Hall hospitalist, who will evaluate the patient for admission. Further management per admitting team. Triage Nursing notes reviewed and agree them. Prior/external medical records reviewed Vital Signs: reviewed Differential diagnosis: Infection, dehydration, metabolic abnormality, hypo/hyperglycemia, electrolyte disturbance, anemia, hypoxia, cardiac sources, intracerebral event, toxicologic, neurologic, as well as other pathologies. ER treatment provided: See below. Diagnostics interpreted by me: ECG: Sinus tachycardia, 118 bpm, no ectopy, ST abnormality in V3 which may reflect artifact versus possible Brugada though less likely, no overt ST elevation. QTc 431, QRS 84. Cardiac Monitoring: An order for continuous cardiac monitoring was placed and demonstrated Sinus tachycardia, 118 bpm, no ectopy. Laboratory studies: See below Imaging studies: See below Consultation(s): Case was discussed with CLAUS Hall hospitalist, who will evaluate the patient for admission. HPI: Per MDM. ROS: See above HPI for pertinent positives & negatives. A total of 10 systems reviewed and were otherwise negative. VITALS:See Below PHYSICAL EXAMINATION: GENERAL: Awake, alert, in no distress HENT: Normocephalic, atraumatic. Oropharynx with dry mucous membranes and otherwise unremarkable. EYES: Normal conjunctiva. Sclera non-icteric. EOMI. No nystamgus. PEARRL. NECK: Supple. No nuchal rigidity. FROM. No JVD. RESPIRATORY: Clear to auscultation. CARDIAC: Regular rate, normal rhythm. Extremities warm and well perfused. Pulses equal. ABDOMEN: Soft, non-distended. No tenderness to palpation. No rebound or guarding. No masses. MUSCULOSKELETAL: Chest examination reveals no tenderness. The back is symmetrical on inspection without obvious abnormality. There is no CVA tenderness to palpation. No joint edema. LOWER EXTREMITIES: Calves are equal size bilaterally and non-tender. No edema. No discoloration. NEURO: Cranial nerves II-XII grossly intact. She reports subjective numbness and tingling of her face bilaterally. 5/5 strength and SILT x 4 extremities. Cerebellar function intact including [id number], alternating palms, [id number]. SKIN: No rash or jaundice noted. Elie Delgado MD Past Med/Surg History Problem List (Updated 06/05/25 @ 15:46 by Elie Delgado MD) Brain fog (Acute) Facial numbness (Acute) Dysuria Gross hematuria Herpes zoster Sinusitis Multiple sclerosis (Acute) Follows with [facility] specialist. 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, only involves hands and feet not airway, resolved on its own Surgical History S/P primary low transverse History of tonsillectomy History of cholecystectomy History of excision of pilonidal cyst Family History Grandmother (Paternal) Diabetes Cancer Grandmother (Maternal) Diabetes Cancer Grandfather (Paternal) Diabetes Father Hypertension Grandfather (Maternal) Heart disease Social History Smoking Status: Former smoker Second Hand Exposure: No; Do You Dip or Chew Tobacco: No; Hx Alcohol Use: Yes Alcohol type: beer and wine Hx Substance Use: No Preferred Language: Setswana Communication Ability: Effective Employment Educational Coord Required: No Beliefs That Will Affect Care: None marital status: Current Living Situation: Spouse How many Children do You have: 1 Feels Safe at Home: Yes Do you think of yourself as: straight/heterosexual Gender Identity: Female Assistive Devices: None Allergies Allergies Allergy/AdvReac Type Severity Reaction Status Date / Time Cephalosporins Allergy Mild Verified 06/01/25 15:56 codeine Allergy Mild Verified 06/01/25 15:56 Penicillins Allergy Mild Verified 06/01/25 15:56 Quinolones Allergy Mild Verified 06/01/25 15:56 Home Meds Home Medications Medication Instructions Recorded Confirmed ocrelizumab 30 mg/mL intravenous 0 mg IV Q6MO 02/18/22 06/05/25 solution (Ocrevus) Previous Rx's Medication Instructions Recorded prednisone 20 mg tablet 60 mg (3 x 20 mg) PO DAILY 5 days 06/01/25 #15 tabs Results & Data (ED) Vital Signs Vital Signs - 24 hr 06/05/25 14:11 06/05/25 14:14 06/05/25 14:32 Temperature 36.6 C Temperature Source Temporal Artery Scan Pulse Rate 121 H 84 73 Respiratory Rate 20 23 Respiratory Effort / Characteristics Spontaneous Respiratory Depth Normal Respiratory Pattern Regular Blood Pressure 148/85 H 148/85 H Blood Pressure Mean 106 96 Pulse Oximetry 100 100 Oxygen Delivery Method Room Air Sepsis Recent Fever Within 48 Hours No Sepsis New/Unexplained Change in Mental Status No Sepsis Action Taken by Nursing No Action Required 06/05/25 14:33 06/05/25 15:00 Temperature Temperature Source Pulse Rate 84 69 Respiratory Rate 19 18 Respiratory Effort / Characteristics Respiratory Depth Respiratory Pattern Blood Pressure 150/104 H Blood Pressure Mean 133 Pulse Oximetry 99 100 Oxygen Delivery Method Sepsis Recent Fever Within 48 Hours Sepsis New/Unexplained Change in Mental Status Sepsis Action Taken by Nursing Laboratory Data Attestation: I reviewed the patient's lab results. 06/05/25 14:14 06/05/25 14:14 Lab Results 06/05/25 06/05/25 Range/Units 14:14 14:15 WBC 7.68 (4.8-10.8) K/ul RBC 4.30 (4.20-5.40) M/uL Hgb 13.4 (12.0-16.0) g/dl Hct 38.1 (37.0-47.0) % MCV 88.6 (80.0-100.0) fL MCH 31.2 (25.0-34.0) pg MCHC 35.2 (32.0-36.0) g/dL RDW Std Deviation 39.3 (36.4-46.3) fL RDW Coeff of Sonia 12.1 (11.5-14.5) % Plt Count 282 (130-400) K/uL MPV 9.4 (9.4-12.4) fL Immature Gran % (Auto) 0.3 % Neut % (Auto) 68.0 % Lymph % (Auto) 23.0 % Moca % (Auto) 7.4 % Eos % (Auto) 0.8 % Baso % (Auto) 0.5 % Neut # (Auto) 5.22 (1.40-6.50) K/uL Lymph # (Auto) 1.77 (1.20-3.40) K/uL Moca # (Auto) 0.57 (0.11-0.59) K/uL Eos # (Auto) 0.06 (0.00-0.50) K/uL Baso # (Auto) 0.04 (0.00-0.20) K/uL Immature Gran # (Auto) 0.02 (0.01-0.20) K/uL PT 11.0 (9.0-12.0) Seconds INR 1.0 (0.9-1.1) APTT 26 (21-31) Seconds PTT Ratio 1.0 Sodium 134 L (136-145) mmol/L Potassium 3.4 L (3.5-5.1) mmol/L Chloride 101 (98-107) mmol/L Carbon Dioxide 25 (21-32) mmol/L Anion Gap 8 (3-11) BUN 11 (6-23) mg/dl Creatinine 0.77 (0.6-1.2) mg/dl Est Cr Clr Drug Dosing 117.3 ml/min eGFR 101.83 BUN/Creatinine Ratio 14.3 (10-20) Glucose 104 H (70-99(Fasting)) mg/dl Calcium 8.9 (8.6-10.3) mg/dl Magnesium 1.9 (1.7-2.4) mg/dl Total Bilirubin 0.6 (0.2-1.0) mg/dl AST 15 (13-39) U/L ALT 12 (7-52) U/L Alkaline Phosphatase 55 (34-104) U/L Troponin I High Sens 2.3 (0-14) pg/ml Total Protein 6.6 (6.0-8.3) gm/dl Albumin 4.0 (3.4-5.0) gm/dl Globulin 2.6 (2.5-4.0) gm/dl Albumin/Globulin Ratio 1.5 (0.9-2) HCG, Qual Negative (Negative) Administered Medications Atorvastatin Calcium (Atorvastatin 40 Mg Tab) 40 mg PO QAM SILVIA Stop: 07/05/25 16:29 Last Admin: 06/05/25 19:37 Dose: 40 mg Documented By: edilberto Heparin Sodium (Porcine) (Heparin Sod 5,000 Unit/0.5 Ml Vial) 5,000 units SQ Q8 SILVIA Stop: 07/05/25 21:59 Last Admin: 06/06/25 04:44 Dose: Not Given Documented By: Admin: 06/05/25 20:00 Dose: Not Given Documented By: DN Discontinued Medications Aspirin (Aspirin 81 Mg Ectab) 81 mg PO NOW STA Stop: 06/05/25 16:23 Last Admin: 06/05/25 19:38 Dose: 81 mg Documented By: edilberto Gadobutrol (Gadobutrol 65ml Vial) 10 ml IV ONCE ONE Stop: 06/05/25 17:28 Last Admin: 06/05/25 17:28 Dose: 10 ml Documented By: CECELIA Sodium Chloride (Nss) 1,000 mls @ 999 mls/hr IV .Q1H1M ONE Stop: 06/05/25 15:19 Last Infusion: 06/05/25 15:19 Dose: Infused Documented By: Admin: 06/05/25 14:27 Dose: 999 mls/hr Documented By: SHORTY Magnesium Sulfate/Dextrose (Magnesium Sulfate / D5w) 1 gm in 100 mls @ 100 mls/hr IV NOW STA Stop: 06/05/25 16:30 Last Infusion: 06/05/25 19:08 Dose: Infused Documented By: Admin: 06/05/25 16:02 Dose: 100 mls/hr Documented By: FEROZ Methylprednisolone 1,000 mg/ (Sodium Chloride) 266 mls @ 266 mls/hr IV NOW ONE Stop: 06/05/25 20:01 Last Infusion: 06/05/25 20:54 Dose: Infused Documented By: Admin: 06/05/25 19:47 Dose: 266 mls/hr Documented By: edilberto Ioversol (Optiray 320 125ml) 112 ml IV ONCE ONE Stop: 06/05/25 14:00 Last Admin: 06/05/25 13:59 Dose: 112 ml Documented By: VALERIA Potassium Chloride (Potassium Chloride Crtab 20 Meq Tabcr) 40 meq PO NOW STA Stop: 06/05/25 15:32 Last Admin: 06/05/25 16:01 Dose: 40 meq Documented By: [facility] Data Radiologist's Impression: Brain MRI 06/05/25 16:17 MRI of the brain performed with and without IV contrast History: Facial numbness Comparison: No prior Technique: Multiplanar T1 weighted, axial T2/FLAIR, and susceptibility images were obtained without intravenous contrast. Following intravenous gadolinium based contrast administration, axial T2 weighted, diffusion, and T1-weighted images were obtained. Findings: No evidence for intracranial mass lesion, mass-effect, midline shift, or abnormal extra-axial fluid collection. Postcontrast images demonstrate no abnormal intracranial enhancement. Scattered, approximately 20 high signal intensity lesions in the white matter, several of which involve the callosal septal surface and radiate perpendicularly from the lateral ventricles. The orbits are grossly unremarkable. The ventricles and sulci are within normal limits for age. No abnormally reduced diffusion or evidence for acute infarct. Normal intravascular flow voids. Small developmental venous anomaly in the medial left frontal lobe. Impression: Scattered lesions in the white matter, as above, most concerning for demyelinating disease. No enhancing lesion or acute intracranial pathology otherwise seen. Electronically signed by Sherwin Andre 06-05-2025 5:[address] 06/05/25 13:53 CT SCAN OF THE BRAIN WITHOUT IV CONTRAST CLINICAL HISTORY: Neuro deficit. Acute stroke suspected. COMPARISON STUDY: None. TECHNIQUE: Unenhanced axial CT scan of the brain was performed from the vertex to the skull base. A dose lowering technique was utilized adhering to the principles of ALARA. FINDINGS: Brain parenchyma: No acute intracranial hemorrhage, midline shift or mass effect is present. Nuñ[place]-wh[place]te matter differentiation is preserved. There are no extra- axial fluid collections. There are no findings to suggest acute dural sinus thrombosis or acute territorial infarct. Ventricles, sulci, cisterns: There is no hydrocephalus. The basal cisterns are patent. Calvarium: Unremarkable. Sinuses and mastoids: The visualized paranasal sinuses are clear. The mastoid air cells are well pneumatized. Orbits: The bony orbits are grossly intact. IMPRESSION: No acute intracranial findings. ACT 112: Negative or not required by law. Electronically signed by: Lito Elliott M.D. 06/05/2025 2:12 PM Head CTA 06/05/25 13:53 CT ANGIOGRAM OF THE BRAIN; CT ANGIOGRAM OF THE NECK CLINICAL HISTORY: Neurological deficit. Stroke like symptoms. COMPARISON STUDY: Unenhanced CT of the brain performed concurrently on 06/05/2025 TECHNIQUE: Following the IV administration of 112 of Optiray 320, CT angiogram of the head and neck was performed from the aortic arch to the vertex. Images are reviewed in the axial, sagittal, and coronal planes. 3-D MIPS images are created and assessed. IV contrast was administered without complication. All measurements were calculated based on NASCET criteria. A dose lowering technique was utilized adhering to the principles of ALARA. CT DOSE: 1151.41 mGy.cm FINDINGS: Brain parenchyma: There is no evidence of hemorrhage or mass effect noting angiographic phase technique. There is no evidence of enhancing mass lesion on the angiogram phase images. The ventricles, sulci, and cisterns are normal in configuration. Nuñez-white matter differentiation is preserved. No extra-axial fluid collection is seen. Thoracic aorta: Visualized portions of the thoracic aorta are normal in caliber. The aortic arch demonstrates standard 3-vessel anatomy. Right carotid arterial system: The right common carotid artery is widely patent, as are the right internal and external carotid arteries. Left carotid arterial system: The left common carotid artery is widely patent, as are the left internal and external carotid arteries. Vertebral arteries: Widely patent bilaterally noting right-sided dominance. Subclavian arteries: Widely patent bilaterally. Intracranial vasculature: The internal carotid arteries are patent at the skull base, as are the anterior and middle cerebral arteries bilaterally. The vertebrobasilar system and posterior cerebral arteries are widely patent. The right vertebral artery is dominant. There is a right posterior communicating artery. There is no aneurysm, high-grade stenosis, or focal vessel cut off seen throughout the intracranial circulation. Jugular veins: Patent bilaterally. Dural sinuses: Patent. Lung apices: Partially visualized upper lobe lung parenchyma appears clear. Soft tissues: The visualized pharyngeal soft tissues are normal in appearance noting angiographic phase technique. The oropharyngeal airway appears widely patent. The salivary and thyroid glands are normal in appearance. No cervical lymphadenopathy is seen. Skeletal structures: The calvarium appears intact. The cervical spine is within normal limits. Orbits: The bony orbits are intact. Orbital contents are normal as visualized. Sinuses and mastoids: There is mild mucosal thickening within the right maxillary antrum. The remaining paranasal sinuses are clear. The mastoid air cells are well pneumatized. IMPRESSION: 1. There is no evidence of hemorrhage or mass effect noting angiographic phase technique. 2. Unremarkable CT angiogram of the brain. 3. Unremarkable CT angiogram of the neck. ACT 112: Negative or not required by law. Electronically signed by: John Kendall M.D. 06/05/2025 2:17 PM Neck CTA 06/05/25 13:53 CT ANGIOGRAM OF THE BRAIN; CT ANGIOGRAM OF THE NECK CLINICAL HISTORY: Neurological deficit. Stroke like symptoms. COMPARISON STUDY: Unenhanced CT of the brain performed concurrently on 06/05/2025 TECHNIQUE: Following the IV administration of 112 of Optiray 320, CT angiogram of the head and neck was performed from the aortic arch to the vertex. Images are reviewed in the axial, sagittal, and coronal planes. 3-D MIPS images are created and assessed. IV contrast was administered without complication. All measurements were calculated based on NASCET criteria. A dose lowering technique was utilized adhering to the principles of ALARA. CT DOSE: 1151.41 mGy.cm FINDINGS: Brain parenchyma: There is no evidence of hemorrhage or mass effect noting angiographic phase technique. There is no evidence of enhancing mass lesion on the angiogram phase images. The ventricles, sulci, and cisterns are normal in configuration. Nuñez-white matter differentiation is preserved. No extra-axial fluid collection is seen. Thoracic aorta: Visualized portions of the thoracic aorta are normal in caliber. The aortic arch demonstrates standard 3-vessel anatomy. Right carotid arterial system: The right common carotid artery is widely patent, as are the right internal and external carotid arteries. Left carotid arterial system: The left common carotid artery is widely patent, as are the left internal and external carotid arteries. Vertebral arteries: Widely patent bilaterally noting right-sided dominance. Subclavian arteries: Widely patent bilaterally. Intracranial vasculature: The internal carotid arteries are patent at the skull base, as are the anterior and middle cerebral arteries bilaterally. The vertebrobasilar system and posterior cerebral arteries are widely patent. The right vertebral artery is dominant. There is a right posterior communicating artery. There is no aneurysm, high-grade stenosis, or focal vessel cut off seen throughout the intracranial circulation. Jugular veins: Patent bilaterally. Dural sinuses: Patent. Lung apices: Partially visualized upper lobe lung parenchyma appears clear. Soft tissues: The visualized pharyngeal soft tissues are normal in appearance noting angiographic phase technique. The oropharyngeal airway appears widely patent. The salivary and thyroid glands are normal in appearance. No cervical lymphadenopathy is seen. Skeletal structures: The calvarium appears intact. The cervical spine is within normal limits. Orbits: The bony orbits are intact. Orbital contents are normal as visualized. Sinuses and mastoids: There is mild mucosal thickening within the right maxillary antrum. The remaining paranasal sinuses are clear. The mastoid air cells are well pneumatized. IMPRESSION: 1. There is no evidence of hemorrhage or mass effect noting angiographic phase technique. 2. Unremarkable CT angiogram of the brain. 3. Unremarkable CT angiogram of the neck. ACT 112: Negative or not required by law. Electronically signed by: John Kendall M.D. 06/05/2025 2:17 PM Chest X-Ray 06/05/25 14:19 XR chest 1V portable CLINICAL HISTORY: weakness COMPARISON STUDY: 05/13/2019 FINDINGS: Heart size and pulmonary vasculature are normal. Inspiration is shallow. No consolidation or pleural effusion. No pneumothorax. IMPRESSION: No acute findings. ACT 112: Negative or not required by law. Electronically signed by: Cuong Santana M.D. 06/05/2025 2:53 PM Brain MRI 06/05/25 16:17 MRI of the brain performed with and without IV contrast History: Facial numbness Comparison: No prior Technique: Multiplanar T1 weighted, axial T2/FLAIR, and susceptibility images were obtained without intravenous contrast. Following intravenous gadolinium based contrast administration, axial T2 weighted, diffusion, and T1-weighted images were obtained. Findings: No evidence for intracranial mass lesion, mass-effect, midline shift, or abnormal extra-axial fluid collection. Postcontrast images demonstrate no abnormal intracranial enhancement. Scattered, approximately 20 high signal intensity lesions in the white matter, several of which involve the callosal septal surface and radiate perpendicularly from the lateral ventricles. The orbits are grossly unremarkable. The ventricles and sulci are within normal limits for age. No abnormally reduced diffusion or evidence for acute infarct. Normal intravascular flow voids. Small developmental venous anomaly in the medial left frontal lobe. Impression: Scattered lesions in the white matter, as above, most concerning for demyelinating disease. No enhancing lesion or acute intracranial pathology otherwise seen. Electronically signed by Sherwin Andre 06-05-2025 5:59 PM Discharge Plan Visit Data Chief Complaint: Neuro Symptoms/Deficit Stated Complaint: FACIAL NUMBNESS, DIZZINESS, CONFUSION ED Provider: Elie Delgado Discharge Problem: Facial numbness, Brain fog, Multiple sclerosis Patient Disposition: Admitted As Inpatient Condition: Fair Discharge Instructions Interventions: ED Discharge Assessment Last Done: 06/05/25 18:19
--- NOTE | 2025-06-05 14:20 | CT Scan Report ---
CT ANGIOGRAM OF THE BRAIN; CT ANGIOGRAM OF THE NECK CLINICAL HISTORY: Neurological deficit. Stroke like symptoms. COMPARISON STUDY: Unenhanced CT of the brain performed concurrently on 06/05/2025 TECHNIQUE: Following the IV administration of 112 of Optiray 320, CT angiogram of the head and neck w as performed from the aortic arch to the vertex. Images are reviewed in the axial, sagittal, and holly nal planes. 3-D MIPS images are created and assessed. IV contrast was administered without complicati on. All measurements were calculated based on NASCET criteria. A dose lowering technique was utilize d adhering to the principles of ALARA. CT DOSE: 1151.41 mGy.cm FINDINGS: Brain parenchyma: There is no evidence of hemorrhage or mass effect noting angiographic phase techniq ue. There is no evidence of enhancing mass lesion on the angiogram phase images. The ventricles, sulc i, and cisterns are normal in configuration. Nuñez-white matter differentiation is preserved. No extra -axial fluid collection is seen. Thoracic aorta: Visualized portions of the thoracic aorta are normal in caliber. The aortic arch demo nstrates standard 3-vessel anatomy. Right carotid arterial system: The right common carotid artery is widely patent, as are the right int ernal and external carotid arteries. Left carotid arterial system: The left common carotid artery is widely patent, as are the left international trade compliance manager al and external carotid arteries. Vertebral arteries: Widely patent bilaterally noting right-sided dominance. Subclavian arteries: Widely patent bilaterally. Intracranial vasculature: The internal carotid arteries are patent at the skull base, as are the ante rior and middle cerebral arteries bilaterally. The vertebrobasilar system and posterior cerebral wanda kris are widely patent. The right vertebral artery is dominant. There is a right posterior communicat ing artery. There is no aneurysm, high-grade stenosis, or focal vessel cut off seen throughout the in tracranial circulation. Jugular veins: Patent bilaterally. Dural sinuses: Patent. Lung apices: Partially visualized upper lobe lung parenchyma appears clear. Soft tissues: The visualized pharyngeal soft tissues are normal in appearance noting angiographic pha se technique. The oropharyngeal airway appears widely patent. The salivary and thyroid glands are nor mal in appearance. No cervical lymphadenopathy is seen. Skeletal structures: The calvarium appears intact. The cervical spine is within normal limits. Orbits: The bony orbits are intact. Orbital contents are normal as visualized. Sinuses and mastoids: There is mild mucosal thickening within the right maxillary antrum. The remaini ng paranasal sinuses are clear. The mastoid air cells are well pneumatized. IMPRESSION: 1. There is no evidence of hemorrhage or mass effect noting angiographic phase technique. 2. Unremarkable CT angiogram of the brain. 3. Unremarkable CT angiogram of the neck. ACT 112: Negative or not required by law. Electronically signed by: John Kendall M.D. 06/05/2025 2:17 PM
[2025-06-05 14:27] LABS: Hematocrit (blood only) 38.1 % (37.0-47.0); Hemoglobin 13.4 g/dl (12.0-16.0); Immature Granulocytes # (auto) 0.02 K/uL (0.01-0.20); Immature Granulocytes % (auto) 0.3 %; Mean Corpuscular Hemoglobin 31.2 pg (25.0-34.0); Mean Corpuscular Volume 88.6 fL (80.0-100.0); Platelet Count 282 K/uL (130-400); RDW Standard Deviation 39.3 fL (36.4-46.3); Red Blood Count 4.30 M/uL (4.20-5.40); White Blood Count 7.68 K/ul (4.8-10.8)
[2025-06-05] MEDS: SODIUM CHLORIDE 0.9% 1,000 ML IV ONE (14:27)
[2025-06-05 14:44] LABS: Alanine Aminotransferase 12.0 U/L (7-52); Albumin Globulin Ratio 1.5 (0.9-2); Alkaline Phosphatase 55.0 U/L (34-104); Anion Gap 8.0 (3-11); Bilirubin,Total 0.6 mg/dl (0.2-1.0); Blood Urea Nitrogen 11.0 mg/dl (6-23); Calcium 8.9 mg/dl (8.6-10.3); Carbon Dioxide 25.0 mmol/L (21-32); Chloride 101.0 mmol/L (98-107); Creatinine Clr Calc Pharmacy 117.3 ml/min; Globulin 2.6 gm/dl (2.5-4.0); Glucose 104.0 mg/dl (70-99(Fasting)); Magnesium 1.9 mg/dl (1.7-2.4); Potassium 3.4 mmol/L (3.5-5.1); Sodium 134.0 mmol/L (136-145); Total Protein 6.6 gm/dl (6.0-8.3)
--- NOTE | 2025-06-05 14:54 | XRay Report ---
XR chest 1V portable CLINICAL HISTORY: weakness COMPARISON STUDY: 05/13/2019 FINDINGS: Heart size and pulmonary vasculature are normal. Inspiration is shallow. No consolidation o r pleural effusion. No pneumothorax. IMPRESSION: No acute findings. ACT 112: Negative or not required by law. Electronically signed by: Cuong Santana M.D. 06/05/2025 2:53 PM
[2025-06-05 14:55] LABS: Pregnancy Test, Serum Negative (Negative)
[2025-06-05 14:58] LABS: INR 1.0 (0.9-1.1); Partial Thromboplastin Time 26 Seconds (21-31); Prothrombin Time 11.0 Seconds (9.0-12.0)
[2025-06-05] MEDS: POTASSIUM CHLORIDE CRTAB 20 MEQ TABCR PO STA (16:01)
[2025-06-05] MEDS: MAGNESIUM SULFATE / D5W 1 GM/100 ML BAG IV STA (16:02)
[2025-06-05] MEDS ORDERED: ONDANSETRON INJ 2 MG/ML 2 ML VIAL IV PRN (16:21)
[2025-06-05] MEDS ORDERED: ACETAMINOPHEN 325 MG TAB PO PRN (16:21)
--- NOTE | 2025-06-05 17:14 | History & Physical Report ---
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 Pt has an MS special in [place] and has had previous flares, but not recently. In the ER she presented as a stroke alert, all imaging was negative for acute CVA. Pt still with persistent symptoms. She will be admitted for further evaluation and treatment of MS flare with MRI, solu-medrol and neurology consult. Allergies Allergy/AdvReac Type Severity Reaction Status Date / Time Cephalosporins Allergy Mild Verified 06/01/25 15:56 codeine Allergy Mild Verified 06/01/25 15:56 Penicillins Allergy Mild Verified 06/01/25 15:56 Quinolones Allergy Mild Verified 06/01/25 15:56 Home Medications Medication Instructions Recorded Confirmed Type ocrelizumab 30 mg/mL intravenous 0 mg IV Q6MO 02/18/22 06/05/25 History solution (Ocrevus) prednisone 20 mg tablet 60 mg (3 x 20 mg) PO DAILY 5 days 06/01/25 06/05/25 Rx #15 tabs Past Med/Surg History Problem List (Updated 06/05/25 @ 15:46 by Elie Delgado MD) Brain fog (Acute) Facial numbness (Acute) Dysuria Gross hematuria Herpes zoster Sinusitis Multiple sclerosis (Acute) Follows with [facility] specialist. 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, only involves hands and feet not airway, resolved on its own Surgical History S/P primary low transverse History of tonsillectomy History of cholecystectomy History of excision of pilonidal cyst Family History Grandmother (Paternal) Diabetes Cancer Grandmother (Maternal) Diabetes Cancer Grandfather (Paternal) Diabetes Father Hypertension Grandfather (Maternal) Heart disease Social History Smoking Status: Unknown if ever smoked Do You Dip or Chew Tobacco: No; Hx Alcohol Use: No Hx Substance Use: No Preferred Language: Tamazight Communication Ability: Effective Beliefs That Will Affect Care: Mandaeism marital status: Current Living Situation: Spouse How many Children do You have: 1 Feels Safe at Home: Yes Do you think of yourself as: straight/heterosexual Gender Identity: Female Assistive Devices: Glasses Review of Systems Review of Systems: CONST: Negative for fever, body aches and chills. HENT: Negative for neck pain/stiffness, headache, congestion, sore throat, swelling. EYES: Negative for discharge/pain or vision changes. RESP: Negative for cough/hemoptysis and shortness of breath. CV: Negative chest pain, difficulty breathing, palpitations. ABD: Negative pain, nausea, vomiting. : Negative increase frequency, dysuria, blood in urine or stool. MUSC: Negative for muscle aches, edema. SKIN: Negative rash, lesions/sores. NEURO: Negative headache, dizziness, weakness. Physical Exam Physical Exam: GENERAL APPEARANCE NAD, activity normal for age, well developed/ well nourished, no cyanosis, pallor, or diaphoresis. EYES lids/conjunctiva normal. EARS/NOSE/THROAT Mucous membranes moist, nares normal, lips/teeth normal uvula midline without oral pharyngeal erythema, exudate or swelling TMs normal bilaterally. No lymphangitis/lymphedema. HEAD/NECK normocephalic atraumatic, no facial trauma, neck is supple. RESPIRATORY respiratory effort normal, speaks in full sentences, no tripod position, no accessory muscle use. Lungs clear to auscultation without rhonchi, wheezes, rales CARDIAC Regular rate and rhythm, no edema. ABDOMINAL Soft, ND/NT. No evidence of fluid wave. No pulsatile masses on exam, rebound tenderness, Borrero sign or pain over Mcburney's point. MUSCLES/EXTREMITIES No abnormal range of motion, no swelling. SKIN Warm, pink and dry. No rashes, dermatoses, petechiae or lesions. NEUROLOGICAL Speech is clear and appropriate. Normal level of consciousness. Gait and coordination are normal. 5/5 strength in all extremities. PSYCH Normal mood and affect. Judgement/competence is appropriate Results & Data Results & Data Vital Signs (Past 12 Hours) Vital Signs Temp Pulse Resp BP BP Pulse Ox O2 Del Method 06/05/25 16:30 14 127/78 98 Room Air 06/05/25 16:23 70 19 127/78 98 06/05/25 15:00 69 18 100 06/05/25 14:33 84 19 150/104 H 99 06/05/25 14:32 73 06/05/25 14:14 84 23 148/85 H 100 06/05/25 14:11 36.6 C 121 H 20 148/85 H 100 Room Air PG Care Time/CCT Total # of Minutes Spent Total Time Spent with Patient: Total time spent is greater than 50% in coordination of care (as documented) at patient's floor/unit and/or counseling patient: Coding Level of Care Code 37648 INT INP/OBS CARE 2/55MIN Diagnoses Facial numbness R20.0 Multiple sclerosis G35
[2025-06-05 17:22] LABS: Appearance Urine Clear (Clear); Glucose Urine UA Negative (Negative)
[2025-06-05] MEDS: GADOBUTROL 65ML VIAL IV ONE (17:28)
--- NOTE | 2025-06-05 18:06 | Magnetic Resonance Report ---
MRI of the brain performed with and without IV contrast History: Facial numbness Comparison: No prior Technique: Multiplanar T1 weighted, axial T2/FLAIR, and susceptibility images were obtained without intravenous contrast. Following intravenous gadolinium based contrast administration, axial T2 weighted, diffusion, and T1-weighted images were obtained. Findings: No evidence for intracranial mass lesion, mass-effect, midline shift, or abnormal extra-axial fluid collection. Postcontrast images demonstrate no abnormal intracranial enhancement. Scattered, approximately 20 high signal intensity lesions in the white matter, several of which involve the callosal septal surface and radiate perpendicularly from the lateral ventricles. The orbits are grossly unremarkable. The ventricles and sulci are within normal limits for age. No abnormally reduced diffusion or evidence for acute infarct. Normal intravascular flow voids. Small developmental venous anomaly in the medial left frontal lobe. Impression: Scattered lesions in the white matter, as above, most concerning for demyelinating disease. No enhancing lesion or acute intracranial pathology otherwise seen. Electronically signed by Sherwin Andre 06-05-2025 5:59 PM
[2025-06-05] MEDS: ATORVASTATIN 40 MG TAB PO SCH (19:37)
[2025-06-05] MEDS: ASPIRIN 81 MG ECTAB PO STA (19:38)
[2025-06-05] MEDS: methylPREDNISolone 1,000 MG in SODIUM CHLORIDE 0.9% 250 ML IV ONE (19:47)
[2025-06-05] MEDS: HEPARIN SOD 5,000 UNIT/0.5 ML VIAL SQ SCH (20:00)
[2025-06-05 22:27] VITALS: RESP 18
[2025-06-06 07:25] VITALS: PULSE 70; TEMP 97.5; O2SAT 96
[2025-06-06 07:36] LABS: Hematocrit (blood only) 40.8 % (37.0-47.0); Hemoglobin 14.1 g/dl (12.0-16.0); Mean Corpuscular Hemoglobin 31.1 pg (25.0-34.0); Mean Corpuscular Volume 89.9 fL (80.0-100.0); Platelet Count 280 K/uL (130-400); RDW Standard Deviation 39.4 fL (36.4-46.3); Red Blood Count 4.54 M/uL (4.20-5.40); White Blood Count 5.01 K/ul (4.8-10.8)
[2025-06-06 08:01] LABS: Anion Gap 7.0 (3-11); Blood Urea Nitrogen 12.0 mg/dl (6-23); Calcium 8.9 mg/dl (8.6-10.3); Carbon Dioxide 23.0 mmol/L (21-32); Chloride 108.0 mmol/L (98-107); Creatinine Clr Calc Pharmacy 146.2 ml/min; Glucose 158.0 mg/dl (70-99(Fasting)); Potassium 4.4 mmol/L (3.5-5.1); Sodium 138.0 mmol/L (136-145)
[2025-06-06] MEDS: ASPIRIN 81 MG ECTAB PO SCH (08:31)
[2025-06-06] MEDS ORDERED: predniSONE 20 MG TAB PO SCH (09:00)
--- NOTE | 2025-06-06 09:31 | Neurology Consultation ---
Date of Consultation June 06, 2025 Assessment & Plan (1) Multiple sclerosis: History of Present Illness Attending Physician: Savage Munoz MD History of Present Illness S: this morning pt feeling well. resolved numbness. mri brain negative. chart reviewed. 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 In the ER she presented as a stroke alert, all imaging was negative for acute CVA. Pt still with persistent symptoms. She will be admitted for further evaluation and treatment of MS flare with MRI, solu-medrol and neurology consult. Allergies Allergy/AdvReac Type Severity Reaction Status Date / Time Cephalosporins Allergy Mild Verified 06/01/25 15:56 codeine Allergy Mild Verified 06/01/25 15:56 Penicillins Allergy Mild Verified 06/01/25 15:56 Quinolones Allergy Mild Verified 06/01/25 15:56 Home Medications Medication Instructions Recorded Confirmed Type ocrelizumab 30 mg/mL intravenous 0 mg IV Q6MO 02/18/22 06/05/25 History solution (Ocrevus) prednisone 20 mg tablet 60 mg (3 x 20 mg) PO DAILY 5 days 06/01/25 06/05/25 Rx #15 tabs Patient History Surgical History S/P primary low transverse History of tonsillectomy History of cholecystectomy History of excision of pilonidal cyst Family History Grandmother (Paternal) Diabetes Cancer Grandmother (Maternal) Diabetes Cancer Grandfather (Paternal) Diabetes Father Hypertension Grandfather (Maternal) Heart disease Social History Smoking Status: Former smoker Second Hand Exposure: No; Do You Dip or Chew Tobacco: No; Hx Alcohol Use: Yes Alcohol type: beer and wine Hx Substance Use: No Preferred Language: Malian Communication Ability: Effective Portable Trackman Required: No Beliefs That Will Affect Care: None marital status: Current Living Situation: Spouse How many Children do You have: 1 Feels Safe at Home: Yes Do you think of yourself as: straight/heterosexual Gender Identity: Female Assistive Devices: None Exam (Neuro) Physical Exam: HEENT: normocephalic grossly Neuro: Mental: AOx4, fluent speech, normal comprehension, no apraxia, no L/R confusion, no neglect CN: PERRL, Full EOM, symmetric face, Motor: No abnormal movements, normal tone, 5/5 t/o bilaterally Sens: intact to touch b/l grossly Coord: intact Impression: 39 yo female with likely minor MS flare up. MRI normal. Recommendations: no further work up needed from neurology ok for discharge finish po prednisone f/u with her neurology as outpt. will sign off. Chart reviewed I have spent more than 50% educating patient about potential diagnosis and neurological evaluation and coordinating care with patient's treatment team. Total time spent (including chart review and coordination of care): 45 min (this includes chart review). Results & Data Vital Signs (Past 12 Hours) Vital Signs Temp Pulse Pulse Resp BP BP Pulse Ox 06/06/25 07:25 36.4 C L 70 18 124/81 96 06/06/25 07:15 58 L 06/06/25 04:00 36.5 C 65 18 104/70 94 06/06/25 00:00 36.6 C 82 18 112/74 95 06/05/25 22:08 66 06/05/25 21:54 37.1 C 60 18 118/81 96 O2 Del Method 06/06/25 07:25 Room Air 06/06/25 07:15 06/06/25 04:00 Room Air 06/06/25 00:00 Room Air 06/05/25 22:08 06/05/25 21:54 Room Air PG Care Time/CCT Total # of Minutes Spent Total Time Spent with Patient: Total time spent is greater than 50% in coordination of care (as documented) at patient's floor/unit and/or counseling patient: Coding Level of Care Code 24362 IN/OBS CONSULT LVL 3,45M Diagnoses Multiple sclerosis G35
--- NOTE | 2025-06-06 10:27 | Discharge Summary ---
Discharge Summary Date of Service June 06, 2025 Principal Dx & Hospital Course #1 = Principal Diagnosis (1) Facial numbness: -CT/CTA negative for CVA -asa, statin -MRI pending -h/o of MS likley exacerbation -neurology consulted (2) Multiple sclerosis: -on ocrevus -Solu-Medrol 1000mg IV -MRI brain pending -neurology consulted -pt's symptoms resolved, discharged with po steroids and f/u with her neurologist. 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 In the ER she presented as a stroke alert, all imaging was negative for acute CVA. Pt still with persistent symptoms. She will be admitted for further evaluation and treatment of MS flare with MRI, solu-medrol and neurology consult. Discharge Exam GENERAL APPEARANCE NAD, activity normal for age, well developed/ well nourished, no cyanosis, pallor, or diaphoresis. EYES lids/conjunctiva normal. EARS/NOSE/THROAT Mucous membranes moist, nares normal, lips/teeth normal uvula midline without oral pharyngeal erythema, exudate or swelling TMs normal bilaterally. No lymphangitis/lymphedema. HEAD/NECK normocephalic atraumatic, no facial trauma, neck is supple. RESPIRATORY respiratory effort normal, speaks in full sentences, no tripod position, no accessory muscle use. Lungs clear to auscultation without rhonchi, wheezes, rales CARDIAC Regular rate and rhythm, no edema. ABDOMINAL Soft, ND/NT. No evidence of fluid wave. No pulsatile masses on exam, rebound tenderness, Borrero sign or pain over Mcburney's point. MUSCLES/EXTREMITIES No abnormal range of motion, no swelling. SKIN Warm, pink and dry. No rashes, dermatoses, petechiae or lesions. NEUROLOGICAL Speech is clear and appropriate. Normal level of consciousness. Gait and coordination are normal. 5/5 strength in all extremities. PSYCH Normal mood and affect. Judgement/competence is appropriate Discharge Plan Discharge Items Patient Disposition: Home - Self-Care Reason For Visit: FACIAL NUMBNESS, H/O MA Discharge Diagnosis: MS flare Condition on Discharge: Fair Activity: Resume your previous activity Non-emergency contact: Primary Care Provider Call non-emergency contact if: you have any medication questions Follow-up/Referrals: Babs Hirsch, [Primary Care Provider] - Diet: Regular Addtl Attending Provider Instructions: Follow up with neurology in 2 weeks Pending Studies at Discharge: No Stand-Alone Forms: My [employer]pt[employer], Smoking Cessation Medications and DC Order Prescriptions: New prednisone 10 mg tablet 10 mg PO DIRECTED Qty: 20 0RF Rx Instructions: see taper instructions Take 4tabs for 2 days then, take 3tabs for 2 days then, take 2tabs for 2 days then, take 1tab for 2 days Continued Ocrevus 30 mg/mL solution 0 mg IV Q6MO Patient Comments: 06/05- no fill history unable to verify Discontinued prednisone 20 mg tablet 60 mg PO DAILY 5 Days Qty: 15 0RF Discharge Orders: Discharge Order (Routine); Ordered 06/06/25 Ordered By: Savage Munoz Admission Data Admit Date/Time: 06/05/25 16:21 Attending Provider: Savage Munoz Admit Provider: Savage Munoz Primary Care Provider: Babs Hirsch Other Providers: Savage Munoz; Lev Castro Hospital Stay Data Consultations 06/05/25 15:47 ED Decision to Admit Stat 06/05/25 16:16 Consult Neurology Routine Diagnostic Imagining Performed 06/05/25 13:53 CT angio head w con Stat CT angio neck with con Stat CT head/brain wo con Stat 06/05/25 16:17 MRI Brain [MR brain wo/w con] Stat Pending Results Patient Have Any Pending Studies at Discharge: No Discharge Instructions Given to Patient (Per Discharging Provider) Follow up with neurology in 2 weeks Total Time Total Time Spent Total Time Spent (In Minutes): 50 Coding Level of Care Code 83047 INP/OBS DISCH >30 MIN Diagnoses Facial numbness R20.0 Multiple sclerosis G35
[2025-06-06 11:04] VITALS: BP 118/81
--- NOTE | 2025-06-09 09:40 | Electrocardiogram Report ---
Test Reason : Blood Pressure : */* mmHG Vent. Rate : 66 BPM Atrial Rate : 66 BPM P-R Int : 188 ms QRS Dur : 82 ms QT Int : 382 ms P-R-T Axes : 47 37 37 degrees QTcB Int : 400 ms Normal sinus rhythm Normal ECG When compared with ECG of 05-Jun-2025 14:08, (unconfirmed) Vent. rate has decreased by 52 bpm Confirmed by Maurice Sutherland ([id number]) on 06/09/2025 9:39:55 AM Referred By: REFERRED SELF Confirmed By: Maurice Sutherland
--- NOTE | 2025-06-09 09:43 | Electrocardiogram Report ---
Test Reason : Blood Pressure : */* mmHG Vent. Rate : 118 BPM Atrial Rate : 118 BPM P-R Int : 192 ms QRS Dur : 84 ms QT Int : 308 ms P-R-T Axes : 57 24 56 degrees QTcB Int : 431 ms Sinus tachycardia Normal ECG No previous ECGs available Confirmed by Maurice Sutherland ([id number]) on 06/09/2025 9:43:31 AM Referred By: Confirmed By: Maurice Sutherland
== END 2025-06-06 11:23 | disposition home or self-care (01) ==
LOC: 2N 13:46 → ED 13:46 → 2N 18:19